=== PATIENT | female | born 1995 ===

== ENCOUNTER 2024-03-25 04:18 | Inpatient (IN) | payer SELFPAY ==
[2024-03-25] MEDS ORDERED: diphenhydrAMINE 50 MG/ML VIAL ONE (04:42)
[2024-03-25] MEDS ORDERED: Metoclopramide HCl 10 MG (2 mL) VIAL ONE (04:42)
[2024-03-25 05:30] LABS: #Basophils 0.14 10x3/uL (0.0-0.2); #Eosinphils Less than 0.03 10x3/uL (0.0-0.7); %Basophils 0.7 % (0.0-1.0); %Lymphocytes 9.7 % (21.0-51.0); %Monocytes 2.2 % (0.0-10.0); %Neutrophils 86.2 % (42.0-75.0); Hematocrit 42.8 % (36.0-47.0); Hemoglobin 14.4 g/dL (12.0-16.0); Mean Corpuscular HGB CONC 33.6 g/dL (32.0-36.0); Mean Corpuscular Hemoglobin 30.6 pg (27.0-31.0); Mean Corpuscular Volume 90.9 fL (78.0-98.0); Mean Platelet Volume 11.5 fL (7.4-10.4); Platelet Count 334 10x3/uL (130-400); Red Blood Cell (RBC) Count 4.71 mill/uL (4.20-5.40)
[2024-03-25 05:30] LABS: Base Excess -23.7 mEq/L (-2.0 to +3.0); Calcium, Ionized (venous) 1.11 mmol/L (1.16-1.32); Chloride (VBG) 99 mmol/L (98-106); Hematocrit-VBG 47 % (36.0-47.0); Hemoglobin (Hb) 15.9 g/dL (11.7-15.5); Potassium (VBG) 5.83 mmol/L (3.70-5.30); Sodium 135 mmol/L (133-146)
[2024-03-25 05:32] LABS: Actual Bicarbonate (HCO3v) 4.9 mEq/L (22-28)
[2024-03-25 05:53] LABS: BHCG - Serum Negative (NEGATIVE); Pregs Control Background? CLEAR/WHITE (CLR/WHITE); Pregs Control Bar Appear? YES (CONTROL BAR)
[2024-03-25 06:18] LABS: Albumin 4.6 g/dL (3.5-5.0); Chloride 99 mmol/L (98-107); Potassium 5.3 mmol/L (3.5-5.1); Sodium 131 mmol/L (136-145)
[2024-03-25 06:19] LABS: Calcium 9.4 mg/dL (7.8-10.44); Globulin 4.6 g/dL (2.4-3.5); Protein, Total 9.2 g/dL (6.0-8.3)
[2024-03-25 06:22] LABS: Alkaline Phosphatase 67 U/L (40-110); Bilirubin, Total 0.3 mg/dL (0.2-1.2)
[2024-03-25 06:23] LABS: BUN (Urea Nitrogen) 17 mg/dL (7.0-18.7); Calc. Creatinine Clearance 0 mL/min (70-130); Carbon Dioxide Less than 8 mmol/L (22-29); Estimated GFR 42; Glucose 583 mg/dL (70-105); Lipase 10 U/L (8-78)
[2024-03-25 06:25] LABS: ALT (SGPT) 18 U/L (8-55); AST (SGOT) 27 U/L (5-34)
[2024-03-25] MEDS ORDERED: INSULIN REGULAR IN 0.9 % NACL 100 ML ONE (06:44)
[2024-03-25] MEDS ORDERED: NS 0.9% w/ 20 MEQ KCL 1,000 ML IV PRN ×2 (07:49)
[2024-03-25] MEDS ORDERED: Sodium Chloride 0.9% 1,000 ML IV PRN ×4 (07:49)
[2024-03-25] MEDS ORDERED: Dextrose 5 %-0.45 % NaCl 1,000 ML IV PRN (07:49)
[2024-03-25] MEDS ORDERED: Bisacodyl 5 MG TAB PO PRN (07:49)
[2024-03-25] MEDS ORDERED: Acetaminophen 325 MG TAB PO PRN (07:49)
[2024-03-25] MEDS ORDERED: Electrolyte Replacement Protocol 1 EACH IVPB PRN (07:49)
[2024-03-25] MEDS ORDERED: traMADol HCl 50 MG TAB PO PRN (07:49)
[2024-03-25] MEDS ORDERED: Electrolyte Replacement Protocol FS PRN (08:00)
[2024-03-25 08:17] LABS: Bilirubin Negative (Negative); Blood, Urine Trace (Negative); CAUTI Indications for Culture Dysuria,urgency,freq; Clarity Clear (Clear); Glucose, Urine (Dipstick) Greater than 1000 mg/dL (Negative); Ketone, Urine Greater than 150 mg/dL (Negative); Leukocyte Negative Leu/uL (Negative); Nitrite Negative (Negative); Protein, Urine (Dipstick) 20 mg/dL (Neg-Trace); RBC/HPF 0-3 HPF (0-3); Specific Gravity, Urine 1.026 (1.002-1.036); Squamous Epithelial 0-3 HPF (0-3); Urobilinogen Normal mg/dL (Less than 2); WBC/HPF 0-3 HPF (0-3); pH, Urine 5.5 (5.0-9.0)
[2024-03-25 08:21] LABS: Yeast-Budding 1+ HPF (None Seen)
[2024-03-25 08:34] LABS: Bacteria/HPF 1+ HPF (None Seen)
[2024-03-25 08:36] LABS: Urine Culture Reflex No No
[2024-03-25 09:00] LABS: Anion Gap 25 mmol/L (10-20); BUN (Urea Nitrogen) 14 mg/dL (7.0-18.7); Calc. Creatinine Clearance 0 mL/min (70-130); Calcium 8.4 mg/dL (7.8-10.44); Carbon Dioxide Less than 8 mmol/L (22-29); Chloride 110 mmol/L (98-107); Estimated GFR 59; Glucose 366 mg/dL (70-105); Potassium 4.7 mmol/L (3.5-5.1); Sodium 137 mmol/L (136-145)
[2024-03-25] MEDS ORDERED: Magnesium 2 GM/50 ML BAG (IN WATER) ONE (09:20)
[2024-03-25] MEDS ORDERED: Enoxaparin 60 MG (0.6 mL) SYRINGE ONE (09:25)
[2024-03-25] MEDS: Enoxaparin 40 MG (0.4 mL) SYRINGE SC SCH (09:29)
[2024-03-25] MEDS: Magnesium 2 GM/50 ML(in water) 2 GM in Premix 1 BAG IVPB SCH (09:50)
[2024-03-25] MEDS: Nicotine 21 MG PATCH TD SCH (10:09)
[2024-03-25 10:18] LABS: Hemoglobin A1c 12.4 % (4.0-6.0)
[2024-03-25 11:14] LABS: Lactic Acid 2.7 mmol/L (0.5-2.2)
[2024-03-25] MEDS: D5 1/2 NS w/20 mEq KCL 1,000 ML IV PRN (11:27)
[2024-03-25 11:36] VITALS: BMI 27.4
[2024-03-25 13:50] LABS: Anion Gap 18 mmol/L (10-20); BUN (Urea Nitrogen) 11 mg/dL (7.0-18.7); Calc. Creatinine Clearance 90 mL/min (70-130); Calcium 8.2 mg/dL (7.8-10.44); Carbon Dioxide 9 mmol/L (22-29); Chloride 115 mmol/L (98-107); Estimated GFR 65; Glucose 208 mg/dL (70-105); Potassium 4.5 mmol/L (3.5-5.1); Sodium 137 mmol/L (136-145)
[2024-03-25 16:59] LABS: Anion Gap 12 mmol/L (10-20); BUN (Urea Nitrogen) 9 mg/dL (7.0-18.7); Calc. Creatinine Clearance 99 mL/min (70-130); Calcium 8.1 mg/dL (7.8-10.44); Carbon Dioxide 12 mmol/L (22-29); Chloride 115 mmol/L (98-107); Estimated GFR 73; Glucose 199 mg/dL (70-105); Potassium 4.3 mmol/L (3.5-5.1); Sodium 135 mmol/L (136-145)
[2024-03-25] MEDS: INSULIN REGULAR IN 0.9 % NACL 100 ML IVPB SCH (17:57)
[2024-03-25] MEDS: Dextrose 50% Abboject 50 ML SYRINGE SLOW IVP PRN (19:17)
[2024-03-26 00:24] LABS: Anion Gap 9 mmol/L (10-20); BUN (Urea Nitrogen) 6 mg/dL (7.0-18.7); Calc. Creatinine Clearance 114 mL/min (70-130); Calcium 8.4 mg/dL (7.8-10.44); Carbon Dioxide 17 mmol/L (22-29); Chloride 116 mmol/L (98-107); Estimated GFR 87; Glucose 144 mg/dL (70-105); Potassium 3.6 mmol/L (3.5-5.1); Sodium 138 mmol/L (136-145)
[2024-03-26] MEDS ORDERED: Dextrose 5% in Water 1,000 ML IV PRN (00:28)
[2024-03-26] MEDS ORDERED: Glucagon 1 MG/ML KIT IM PRN (00:28)
[2024-03-26] MEDS ORDERED: Dextrose 50% Abboject 50 ML SYRINGE SLOW IVP PRN (00:28)
[2024-03-26] MEDS: Lactated Ringer's 1,000 ML IV SCH (01:20)
[2024-03-26] MEDS: Insulin Glargine 30 UNITS/0.3 ML VIAL SC SCH ×2 (01:22→09:14)
[2024-03-26 04:16] LABS: #Basophils 0.04 10x3/uL (0.0-0.2); %Basophils 0.3 % (0.0-1.0); %Eosinophils 0.3 % (0.0-10.0); %Lymphocytes 22.3 % (21.0-51.0); %Neutrophils 72.7 % (42.0-75.0); Hematocrit 35.6 % (36.0-47.0); Hemoglobin 12.4 g/dL (12.0-16.0); Mean Corpuscular HGB CONC 34.8 g/dL (32.0-36.0); Mean Corpuscular Hemoglobin 31.2 pg (27.0-31.0); Mean Corpuscular Volume 89.7 fL (78.0-98.0); Mean Platelet Volume 10.5 fL (7.4-10.4); Platelet Count 245 10x3/uL (130-400); RBC Distribution Width 12.4 % (11.5-14.5); Red Blood Cell (RBC) Count 3.97 mill/uL (4.20-5.40)
[2024-03-26 04:36] LABS: Anion Gap 14 mmol/L (10-20); BUN (Urea Nitrogen) 5 mg/dL (7.0-18.7); Calc. Creatinine Clearance 121 mL/min (70-130); Calcium 8.4 mg/dL (7.8-10.44); Carbon Dioxide 14 mmol/L (22-29); Chloride 113 mmol/L (98-107); Estimated GFR 93; Glucose 201 mg/dL (70-105); Potassium 4.2 mmol/L (3.5-5.1); Sodium 137 mmol/L (136-145)
[2024-03-26 04:41] LABS: ALT (SGPT) 9 U/L (8-55); AST (SGOT) 17 U/L (5-34); Albumin 3.4 g/dL (3.5-5.0); Alkaline Phosphatase 46 U/L (40-110); Bilirubin, Direct 0.1 mg/dL (0.1-0.3); Bilirubin, Total 0.5 mg/dL (0.2-1.2); Protein, Total 6.3 g/dL (6.0-8.3)
[2024-03-26] MEDS: Fluconazole 100 MG TAB PO SCH (09:14)
[2024-03-26] MEDS: Pantoprazole 40 MG VIAL IVP SCH (09:14)
[2024-03-26] MEDS: traMADol HCl 50 MG TAB PO PRN (09:20)
[2024-03-26] MEDS: Insulin Lispro 100 UNIT/ML 10 ML VIAL SC PRN (09:21)
[2024-03-26 12:00] VITALS: BP 111/66; TEMP 98.4
[2024-03-29 09:06] LABS: pH (venous) 7.051 (7.32-7.43)
== END 2024-03-26 19:03 | disposition home or self-care (01) | DRG 638 ==
LOC: ERS 04:18 → ERHOLD 07:12 → 2SW 07:12 → CCU 09:52 → 2SW 03-26 05:27
PROVIDERS: ADMIT Internal Medicine; ATTEND Internal Medicine
DX: E10.10 Type 1 diabetes mellitus with ketoacidosis without coma (principal); N17.9 Acute kidney failure, unspecified; E87.5 Hyperkalemia; R79.89 Other specified abnormal findings of blood chemistry; F17.210 Nicotine dependence, cigarettes, uncomplicated; Z79.4 Long term (current) use of insulin; Z90.89 Acquired absence of other organs; Z71.6 Tobacco abuse counseling
CPT/HCPCS: 36415; 36416; 80048; 80053; 80076; 81001; 82010; 82805; 83036; 83605; 83690; 83735; 84703; 85025; 93005; 94760; 96365; 96366; 96374; 96375; J1200; J1650; J1815; J2470; J2765; J3475; J3480; J7120; J7999

== ENCOUNTER 2024-05-25 16:22 | Emergency (ER) | payer SELFPAY ==
[2024-05-25 17:06] LABS: #Basophils 0.12 10x3/uL (0.0-0.2); %Basophils 1.4 % (0.0-1.0); %Eosinophils 0.6 % (0.0-10.0); %Lymphocytes 39.7 % (21.0-51.0); %Monocytes 3.8 % (0.0-10.0); %Neutrophils 54.1 % (42.0-75.0); Hematocrit 39.7 % (36.0-47.0); Hemoglobin 14.2 g/dL (12.0-16.0); Mean Corpuscular HGB CONC 35.8 g/dL (32.0-36.0); Mean Corpuscular Hemoglobin 31.5 pg (27.0-31.0); Mean Platelet Volume 11.2 fL (7.4-10.4); Platelet Count 322 10x3/uL (130-400); RBC Distribution Width 12.2 % (11.5-14.5); Red Blood Cell (RBC) Count 4.51 mill/uL (4.20-5.40)
[2024-05-25 17:20] LABS: BHCG - Serum Negative (NEGATIVE); Pregs Control Background? CLEAR/WHITE (CLR/WHITE); Pregs Control Bar Appear? YES (CONTROL BAR)
[2024-05-25 17:28] LABS: ALT (SGPT) 14 U/L (8-55); AST (SGOT) 16 U/L (5-34); Albumin 4.3 g/dL (3.5-5.0); Alkaline Phosphatase 52 U/L (40-110); Anion Gap 19 mmol/L (10-20); BUN (Urea Nitrogen) 15 mg/dL (7.0-18.7); Bilirubin, Total 0.5 mg/dL (0.2-1.2); CK (CPK) 155 U/L (29-168); Calc. Creatinine Clearance 0 mL/min (70-130); Calcium 9.5 mg/dL (7.8-10.44); Carbon Dioxide 16 mmol/L (22-29); Chloride 101 mmol/L (98-107); Estimated GFR 57; Globulin 3.7 g/dL (2.4-3.5); Glucose 282 mg/dL (70-105); Lipase 20 U/L (8-78); Potassium 3.6 mmol/L (3.5-5.1); Sodium 132 mmol/L (136-145)
[2024-05-25] MEDS ORDERED: Ondansetron PF 4 MG/2 ML Vial ONE (17:37)
[2024-05-25 17:41] LABS: Actual Bicarbonate (HCO3v) 15.7 mEq/L (22-28); Base Excess -8.4 mEq/L (-2.0 to +3.0); Calcium, Ionized (venous) 1.17 mmol/L (1.16-1.32); Chloride (VBG) 99 mmol/L (98-106); Hematocrit-VBG 44 % (36.0-47.0); Hemoglobin (Hb) 15.1 g/dL (11.7-15.5); Potassium (VBG) 3.69 mmol/L (3.70-5.30); Sodium 134 mmol/L (133-146)
[2024-05-25 19:54] LABS: Lactic Acid 1.94 mmol/L (0.5-2.2)
[2024-05-25 20:21] LABS: Bacteria/HPF None Seen HPF (None Seen); Bilirubin 1+ (Negative); Blood, Urine Negative (Negative); CAUTI Indications for Culture Dysuria,urgency,freq; Clarity Clear (Clear); Glucose, Urine (Dipstick) Greater than 1000 mg/dL (Negative); Ketone, Urine 100 mg/dL (Negative); Leukocyte Negative Leu/uL (Negative); Nitrite Negative (Negative); Protein, Urine (Dipstick) 20 mg/dL (Neg-Trace); RBC/HPF 0-3 HPF (0-3); Specific Gravity, Urine 1.031 (1.002-1.036); Squamous Epithelial 0-3 HPF (0-3); WBC/HPF 0-3 HPF (0-3); pH, Urine 5.5 (5.0-9.0)
[2024-05-25 20:22] LABS: Urine Culture Reflex No No
[2024-05-25 21:05] LABS: Anion Gap 19 mmol/L (10-20); BUN (Urea Nitrogen) 13 mg/dL (7.0-18.7); Calc. Creatinine Clearance 0 mL/min (70-130); Calcium 9.4 mg/dL (7.8-10.44); Carbon Dioxide 17 mmol/L (22-29); Chloride 103 mmol/L (98-107); Estimated GFR 64; Glucose 172 mg/dL (70-105); Potassium 3.5 mmol/L (3.5-5.1); Sodium 135 mmol/L (136-145)
[2024-05-25] MEDS ORDERED: Insulin Glargine 30 UNITS/0.3 ML VIAL SC SCH (21:45)
== END 2024-05-25 22:42 | disposition home or self-care (01) ==
LOC: ERS 16:22
DX: R11.0 Nausea (principal); Z76.0 Encounter for issue of repeat prescription; E11.9 Type 2 diabetes mellitus without complications; Z79.4 Long term (current) use of insulin
CPT/HCPCS: 36415; 36416; 71045; 80053; 81001; 82010; 82550; 82805; 83605; 83690; 84703; 85025; 93005; 96361; 96374; J1815; J2405

== ENCOUNTER 2024-08-01 16:23 | Inpatient (IN) | payer SELFPAY ==
[2024-08-01 17:23] LABS: #Basophils 0.07 10x3/uL (0.0-0.2); #Eosinophils Less than 0.03 10x3/uL (0.0-0.7); %Basophils 1.1 % (0.0-1.0); %Eosinophils 0.2 % (0.0-10.0); %Lymphocytes 28.8 % (21.0-51.0); %Monocytes 4.4 % (0.0-10.0); %Neutrophils 64.9 % (42.0-75.0); Hematocrit 42.3 % (36.0-47.0); Hemoglobin 13.7 g/dL (12.0-16.0); Mean Corpuscular HGB CONC 32.4 g/dL (32.0-36.0); Mean Corpuscular Hemoglobin 30.9 pg (27.0-31.0); Mean Corpuscular Volume 95.3 fL (78.0-98.0); Mean Platelet Volume 11.7 fL (7.4-10.4); Platelet Count 280 10x3/uL (130-400); Red Blood Cell (RBC) Count 4.44 mill/uL (4.20-5.40)
[2024-08-01 17:29] LABS: Bacteria/HPF None Seen HPF (None Seen); Bilirubin Negative (Negative); Blood, Urine Negative (Negative); CAUTI Indications for Culture Dysuria,urgency,freq; Clarity Clear (Clear); Glucose, Urine (Dipstick) Greater than 1000 mg/dL (Negative); Ketone, Urine 100 mg/dL (Negative); Leukocyte Negative Leu/uL (Negative); Nitrite Negative (Negative); Protein, Urine (Dipstick) Negative (Neg-Trace); RBC/HPF 0-3 HPF (0-3); Specific Gravity, Urine 1.034 (1.002-1.036); Squamous Epithelial None Seen HPF (0-3); Urobilinogen Normal mg/dL (Less than 2); WBC/HPF 0-3 HPF (0-3); pH, Urine 5.5 (5.0-9.0)
[2024-08-01 17:30] LABS: Urine Culture Reflex No No
[2024-08-01 17:54] LABS: Phosphorus 3.1 mg/dL (2.3-4.7)
[2024-08-01 18:07] LABS: ALT (SGPT) 17 U/L (8-55); AST (SGOT) 17 U/L (5-34); Albumin 4.6 g/dL (3.5-5.0); Alkaline Phosphatase 65 U/L (40-110); Anion Gap 28 mmol/L (10-20); BUN (Urea Nitrogen) 15 mg/dL (7.0-18.7); Bilirubin, Total 0.5 mg/dL (0.2-1.2); Calc. Creatinine Clearance 0 mL/min (70-130); Calcium 9.1 mg/dL (7.8-10.44); Carbon Dioxide 8 mmol/L (22-29); Chloride 91 mmol/L (98-107); Estimated GFR 45; Globulin 4.1 g/dL (2.4-3.5); Glucose 830 mg/dL (70-105); Magnesium 1.9 mg/dL (1.6-2.6); Potassium 4.7 mmol/L (3.5-5.1); Protein, Total 8.7 g/dL (6.0-8.3); Sodium 122 mmol/L (136-145)
[2024-08-01] MEDS ORDERED: Electrolyte Replacement Protocol 1 EACH IVPB SCH (18:23)
[2024-08-01] MEDS ORDERED: NS 0.9% w/ 20 MEQ KCL 1,000 ML IV PRN ×2 (18:23)
[2024-08-01] MEDS ORDERED: Sodium Chloride 0.9% 1,000 ML IV PRN ×4 (18:23)
[2024-08-01] MEDS ORDERED: Dextrose 5 %-0.45 % NaCl 1,000 ML IV PRN (18:23)
[2024-08-01] MEDS ORDERED: Dextrose 50% Abboject 50 ML SYRINGE SLOW IVP PRN (18:23)
[2024-08-01] MEDS ORDERED: Ondansetron ODT 4 MG TAB PO PRN (18:26)
[2024-08-01] MEDS ORDERED: Ondansetron PF 4 MG/2 ML Vial IVP PRN (18:26)
[2024-08-01] MEDS ORDERED: Senokot S 8.6-50 MG TAB PO PRN (18:26)
[2024-08-01] MEDS ORDERED: Calcium Carbonate 500 MG ChewTAB PO PRN (18:26)
[2024-08-01] MEDS ORDERED: Acetaminophen 325 MG TAB PO PRN (18:26)
[2024-08-01] MEDS ORDERED: INSULIN REGULAR IN 0.9 % NACL 100 ML IVPB SCH (18:30)
[2024-08-01] MEDS ORDERED: Mag-Al 1200 mg/1200 mg/30 ML UDCUP ONE (18:30)
[2024-08-01] MEDS ORDERED: INSULIN REGULAR IN 0.9 % NACL 100 ML ONE (19:04)
[2024-08-01 20:53] LABS: Base Excess -18.1 mEq/L (-2.0 to +3.0); Calcium, Ionized (venous) 1.17 mmol/L (1.16-1.32); Chloride (VBG) 90 mmol/L (98-106); Hematocrit-VBG 47 % (36.0-47.0); Potassium (VBG) 4.59 mmol/L (3.70-5.30); Sodium 130 mmol/L (133-146)
[2024-08-01 20:55] LABS: pH (venous) 7.042 (7.32-7.43)
[2024-08-01 20:56] LABS: Actual Bicarbonate (HCO3v) 12.4 mEq/L (22-28)
[2024-08-01 23:15] VITALS: BMI 25.2
[2024-08-01] MEDS: Famotidine/PF 20 mg/2ml Vial SLOW IVP SCH (23:20)
[2024-08-01 23:32] LABS: Anion Gap 19 mmol/L (10-20); BUN (Urea Nitrogen) 11 mg/dL (7.0-18.7); Calc. Creatinine Clearance 77 mL/min (70-130); Calcium 8.4 mg/dL (7.8-10.44); Carbon Dioxide 14 mmol/L (22-29); Chloride 103 mmol/L (98-107); Estimated GFR 63; Sodium 132 mmol/L (136-145)
[2024-08-01 23:38] LABS: Glucose 401 mg/dL (70-105)
[2024-08-01] MEDS: Famotidine 20 MG TAB PO SCH (23:39)
[2024-08-01] MEDS: Magnesium 2 GM/50 ML(in water) 2 GM in Premix 1 BAG IVPB SCH (23:39)
[2024-08-02] MEDS: D5 1/2 NS w/20 mEq KCL 1,000 ML IV PRN (00:31)
[2024-08-02 02:25] LABS: Anion Gap 13 mmol/L (10-20); BUN (Urea Nitrogen) 9 mg/dL (7.0-18.7); Calc. Creatinine Clearance 101 mL/min (70-130); Carbon Dioxide 18 mmol/L (22-29); Chloride 107 mmol/L (98-107); Estimated GFR 86; Glucose 224 mg/dL (70-105); Potassium 3.6 mmol/L (3.5-5.1); Sodium 134 mmol/L (136-145)
[2024-08-02 06:26] LABS: Anion Gap 9 mmol/L (10-20); BUN (Urea Nitrogen) 8 mg/dL (7.0-18.7); Calc. Creatinine Clearance 100 mL/min (70-130); Calcium 8.1 mg/dL (7.8-10.44); Carbon Dioxide 22 mmol/L (22-29); Chloride 111 mmol/L (98-107); Estimated GFR 85; Glucose 149 mg/dL (70-105); Magnesium 2.4 mg/dL (1.6-2.6); Phosphorus 1.1 mg/dL (2.3-4.7); Potassium 4.3 mmol/L (3.5-5.1); Sodium 138 mmol/L (136-145)
[2024-08-02] MEDS: FLU (Fluarix Triv) TS24-25(6MOS UP)/PF 45 MCG/0.5 ML Syringe IM ONE (08:00)
[2024-08-02] MEDS: Enoxaparin 40 MG (0.4 mL) SYRINGE SC SCH (08:00)
[2024-08-02] MEDS: PHOS-NAK 1 PKT PACK PO SCH (08:00)
[2024-08-02] MEDS ORDERED: Dextrose 5% in Water 1,000 ML IV PRN (09:05)
[2024-08-02] MEDS ORDERED: Glucagon 1 MG/ML KIT IM PRN (09:05)
[2024-08-02] MEDS: Lactated Ringer's 1,000 ML IV SCH (09:42)
[2024-08-02] MEDS: Insulin Glargine 30 UNITS/0.3 ML VIAL SC SCH ×2 (09:42→20:16)
[2024-08-02] MEDS ORDERED: Dextrose 50% Abboject 50 ML SYRINGE SLOW IVP PRN (09:45)
[2024-08-02] MEDS: Potassium Phosphate 30 MMOL in Sodium Chloride 0.9% 250 ML 250 ML IVPB SCH (16:14)
[2024-08-02] MEDS: Insulin Regular, Human 100 UNIT/ML 10 ML VIAL SC PRN ×2 (16:26→20:27)
[2024-08-03 06:41] LABS: Anion Gap 17 mmol/L (10-20); BUN (Urea Nitrogen) 5 mg/dL (7.0-18.7); Calc. Creatinine Clearance 129 mL/min (70-130); Calcium 8.5 mg/dL (7.8-10.44); Carbon Dioxide 15 mmol/L (22-29); Chloride 110 mmol/L (98-107); Estimated GFR 116; Glucose 185 mg/dL (70-105); Magnesium 1.9 mg/dL (1.6-2.6); Phosphorus 2.5 mg/dL (2.3-4.7); Potassium 4.5 mmol/L (3.5-5.1); Sodium 137 mmol/L (136-145)
[2024-08-03] MEDS: Magnesium 2 GM/50 ML(in water) 2 GM in Premix 1 BAG IVPB SCH (08:43)
[2024-08-03] MEDS: FLUoxetine HCl 20 MG CAP PO SCH (08:43)
[2024-08-03] MEDS: Insulin Glargine 30 UNITS/0.3 ML VIAL SC SCH (08:44)
[2024-08-03] MEDS ORDERED: Insulin Glargine 30 UNITS/0.3 ML VIAL SC SCH ×2 (09:00→21:00)
[2024-08-03 11:20] VITALS: BP 111/74; TEMP 98.1
[2024-08-03] MEDS: Insulin Lispro 100 UNIT/ML 10 ML VIAL SQ SCH (11:49)
[2024-08-03 13:06] LABS: Anion Gap 12 mmol/L (10-20); BUN (Urea Nitrogen) 6 mg/dL (7.0-18.7); Calc. Creatinine Clearance 116 mL/min (70-130); Calcium 8.7 mg/dL (7.8-10.44); Carbon Dioxide 24 mmol/L (22-29); Chloride 108 mmol/L (98-107); Estimated GFR 102; Glucose 240 mg/dL (70-105); Sodium 140 mmol/L (136-145)
== END 2024-08-03 15:06 | disposition home or self-care (01) | DRG 638 ==
LOC: ERS 16:23 → ERHOLD 18:25 → IMCU/EMU 22:51 → T4-A 08-02 14:33
PROVIDERS: ADMIT Internal Medicine; ATTEND Family Medicine
DX: E10.10 Type 1 diabetes mellitus with ketoacidosis without coma (principal); N17.9 Acute kidney failure, unspecified; Z66 Do not resuscitate; F17.210 Nicotine dependence, cigarettes, uncomplicated; F10.90 Alcohol use, unspecified, uncomplicated; N18.2 Chronic kidney disease, stage 2 (mild); Z90.89 Acquired absence of other organs
CPT/HCPCS: 36415; 36416; 80048; 80053; 81001; 82010; 82805; 83735; 84100; 85025; 96361; 96374; 99284; J1650; J1815; J3475; J3480; J7050; J7120